=== PATIENT | female | born 2000 | race Hispanic/Latino ===

== ENCOUNTER 2024-07-14 12:54 | Emergency (ER) | payer BC, SELFPAY ==
[2024-07-14 13:05] VITALS: BP 148/97; PULSE 77; RESP 20; TEMP 36.6; O2SAT 100
--- NOTE | 2024-07-14 13:12 | ED_ITS ---
HPI - Ear Problem General Chief complaint: Ear Stated complaint: rt ear pain Time Seen by Provider: 07/14/24 13:12 Source: patient, RN notes reviewed and old records reviewed Mode of arrival: ambulatory Limitations: no limitations History of Present Illness HPI Narrative: Patient presents with complaints of cough and chills that began a couple of days ago, now with right ear pain. She has been taking [id number] medications with moderate relief. Afebrile on arrival. She is not in any obvious distress. Related Data Home Medications ?Medication ?Instructions ?Recorded ?Confirmed ?Last Taken ?Type albuterol sulfate 90 mcg/actuation inhalation 07/14/24 Unknown History aerosol inhaler levothyroxine 75 mcg tablet mcg 07/14/24 Unknown History methylphenidate HCl 10 mg tablet mg 07/14/24 Unknown History montelukast 10 mg tablet mg 07/14/24 Unknown History Allergies Allergy/AdvReac Type Severity Reaction Status Date / Time Penicillins Allergy Mild ANAPHALATIC Verified 07/14/24 12:58 REACTION strawberry Allergy Mild Other Verified 07/14/24 12:58 kiwi Allergy Unknown Other Verified 07/14/24 12:58 Sulfa (Sulfonamide Allergy Unknown RASH Verified 07/14/24 12:58 Antibiotics) Review of Systems Review of Systems: All systems reviewed & are unremarkable except as noted in HPI and below Constitutional: Constitutional: Reports no additional constitutional complaints, Reports chills and Reports lethargy ENT: Reports system reviewed and no additional complaints, except as documented and Reports otalgia Cardiovascular: Cardiovascular: Reports no additional cardiovascular complaints Respiratory: Respiratory: Reports no additional respiratory complaints and Reports cough Gastrointestinal: Gastrointestinal: Reports no additional gastrointestinal co mplaints PMFSH Comments At the time of my signature, I reviewed and agree with the nursing past medical, surgical, social, and family history. There is no relevant family history pertinent to the patient complaint. Exam Const: General: cooperative, no acute distress, alert and awake Orientation/consciousness: oriented to person, oriented to place and oriented to time HENMT: Head: normal to inspection Ears: TM's normal bilaterally Mouth: Yes moist mucous membranes Throat: posterior oropharynx normal Resp: Effort & Inspection: normal respiratory effort and able to speak in complete sentences Auscultation: clear to auscultation bilaterally, no crackles, no rales, no rhonchi and no wheezes Cardio: Palpation: normal PMI Rate: regular rate Rhythm: regular rhythm Heart sounds: S1 normal heart sound present and S2 normal heart sound present Neuro: General: oriented to person, oriented to place and oriented to time Cranial nerves: Yes CN's II-XII intact bilaterally Psych: Appearance: grossly normal Thought process: Normal thought process present Insight: Good insight present (Psych) Judgement: Good judgement present (Psych) Course Course Level of Care: Express Care Visit Vital Signs Vital signs: Vital Signs Temperature 97.8 F 07/14/24 13:05 Pulse Rate 77 07/14/24 13:05 Respiratory Rate 20 07/14/24 13:05 Blood Pressure 148/97 H 07/14/24 13:05 Pulse Oximetry 100 07/14/24 13:05 Oxygen Delivery Room Air 07/14/24 13:05 Temperature 97.8 F 07/14/24 13:05 Pulse Rate 77 07/14/24 13:05 Respiratory Rate 20 07/14/24 13:05 Blood Pressure 148/97 H 07/14/24 13:05 Pulse Oximetry 100 07/14/24 13:05 Oxygen Delivery Room Air 07/14/24 13:05 Reviewed Medical Decision Making MDM Narrative Medical decision making narrative: Negative strep, culture pending. Reassuring physical exam. Supportive care measures discussed, symptoms likely viral in origin Discharge instructions reviewed with patient, as well as provided in writing per nursing staff. The instructions also include specific and strict return/GO TO THE ER as well as f/u information. All questions have been answered, and the patient deny any further questions with discharge and discharge plan. Some parts of this dictation were generated by voice recognition software and may contain typographical and/or grammatical inaccuracies. Medical Records Medical records reviewed: Yes I reviewed the external patient's medical records. Vital Signs Vital Signs: Vital Signs Temperature 97.8 F 07/14/24 13:05 Pulse Rate 77 07/14/24 13:05 Respiratory Rate 20 07/14/24 13:05 Blood Pressure 148/97 H 07/14/24 13:05 Pulse Oximetry 100 07/14/24 13:05 Oxygen Delivery Room Air 07/14/24 13:05 Temperature 97.8 F 07/14/24 13:05 Pulse Rate 77 07/14/24 13:05 Respiratory Rate 20 07/14/24 13:05 Blood Pressure 148/97 H 07/14/24 13:05 Pulse Oximetry 100 07/14/24 13:05 Oxygen Delivery Room Air 07/14/24 13:05 reviewed Lab Data Lab results reviewed: Yes I reviewed the patient's lab results. Lab results narrative: reviewed Labs: Lab Results 07/14/24 Range/Units 13:25 POC Grp A Strep Screen Negative (Negative) Discharge Plan Discharge Clinical Impression: Viral infection Patient Disposition: Home, Self-Care Condition: Stable Instructions: Antibiotic Form, Viral Syndrome (ED) Additional Instructions: Continue [id number] medications to treat symptoms. Follow package instructions. Follow-up with primary care provider. Emergency department for new or worse symptoms Patient Language: Taiwanese Prescriptions: No Action methylphenidate HCl 10 mg tablet levothyroxine 75 mcg tablet montelukast 10 mg tablet albuterol sulfate 90 mcg/actuation HFA aerosol inhaler INHALATION Follow-up/Referrals: Elizabeth,LENORA Herndon [Primary Care Provider] - 2 Weeks Stand Alone Forms: Work/School Release IP Time of Disposition: 13:54
[2024-07-14 13:38] LABS: EDSTREPNEGPOS1 Negative (Negative)
== END 2024-07-14 14:00 | disposition home or self-care (01) ==
PROVIDERS: Emergency Provider Nurse Practitioner Family; PCP Registered Nurse
DX: B34.9 Viral infection, unspecified (principal); E03.9 Hypothyroidism, unspecified
CPT/HCPCS: 87081; 87880; 99203; G0463

== ENCOUNTER 2025-01-01 18:05 | Emergency (ER) | payer BC, SELFPAY ==
--- NOTE | ~2025-01-01 | XR_ITS ---
XR lumbar spine 2-3V 01/01/2025 18:49 Indication: Low back pain. Twisting injury. Procedure: 3 views lumbar spine Comparison: No prior studies for comparison. Findings: Mild loss of vertebral body height at L5. There is loss of disc height at L4-5. Normal lumbar lordosis. No evidence for spondylolisthesis. Impression: 1: Mild loss of vertebral body height at L5 without definite fracture. If there is concern for acute fracture, recommend further evaluation with CT or MRI. 2: Mild degenerative disc disease at L4-5. Reviewed, dictated and finalized at location O. Impression: 1: Mild loss of vertebral body height at L5 without definite fracture. If there is concern for acute fracture, recommend further evaluation with CT or MRI. 2: Mild degenerative disc disease at L4-5.
[2025-01-01 18:12] VITALS: BP 140/78; PULSE 98; RESP 16; TEMP 36.7; O2SAT 99
--- OUTSIDE RECORDS SUMMARY | 2025-01-01 18:28 | XMS_ITS | Clinical Summary ---
Author Organization [facility] Address [address] [place] [id number] Care Team Providers Care Radio Electronics Technician Name Role Phone Unavailable Primary Care Provider Unavailabl e Social History Tobacco Use Types Packs/Day Years Used Date Smoking Tobacco: Never Assessed Comments Unknown Sex and Gender Information Value Date Recorded Sex Assigned at Not on file Legal Sex Female 6:18 PM CDT Gender Identity Not on file Sexual Orientation Not on file Plan of Treatment Health Maintenance Due Date Last Done Comments Cervical Cancer Screening Pa p Smear (Age 21 to 29) Every 3 Years 2001 Cervical Cancer Screening 2001 Annual Physical 2004 HPV Vaccines (1 - 3-dose series) 2016 Meningococcal B Vaccine (1 o f 2 - Standard) 2017 Hepatitis C 2019 DTaP, Tdap and Td Vaccines ( 1 - Tdap) 2020 Hepatitis B Vaccines (1 of 3 - 19+ 3-dose series) 2020 COVID-19 Vaccine (1 - 2023-2 5 season) 2024 Meningococcal Vaccine Aged Out No cesar aureliano eligible based on patient's age to complete this topic Pneumococcal Vaccine: Pediat rics (0 to 5 Years) and At-Risk Patients (6 to 49 Years) Aged Out No longer eligible b ased on patient's age to complete this topic RSV Immunizations Under 20 Months Aged Out No longer eligible based on patient's age to complete this topic
[2025-01-01] MEDS: ORPHENADRINE CITRATE 100 MG TABLET.ER PO (18:29)
[2025-01-01] MEDS: KETOROLAC (*BKC) 60 MG/2 ML VIAL IM (18:30)
--- NOTE | 2025-01-01 18:34 | ED_ITS ---
HPI - Back Pain/Injury General Chief Complaint: Back Pain/Injury Stated Complaint: BACK PAIN Time Seen by Provider: 01/01/25 18:12 History of Present Illness HPI Narrative: 24-year-old female presents with left lower back pain since waking up this morning. Patient states she works at [employer] and lifted something heavy last night. Patient states she did not start having pain to this morning. Patient has taken Tylenol. Patient denies history of back problems. Patient denies any trauma. Onset (ago): hour(s) (10) Associated symptoms: denies other symptoms Treatments prior to arrival: acetaminophen Work related injury: Yes Related Data Home Medications ?Medication ?Instructions ?Recorded ?Confirmed ?Last Taken ?Type albuterol sulfate 90 mcg/actuation inhalation 07/14/24 Unknown History aerosol inhaler levothyroxine 75 mcg tablet mcg 07/14/24 Unknown Hist ory methylphenidate HCl 10 mg tablet mg 07/14/24 Unknown History montelukast 10 mg tablet mg 07/14/24 Unknown History Allergies Allergy/AdvReac Type Severity Reaction Status Date / Time Penicillins Allergy Mild ANAPHALATIC Verified 01/01/25 18:14 REACTION strawberry Allergy Mild Other Verified 01/01/25 18:14 kiwi Allergy Unknown Other Verified 01/01/25 18:14 Sulfa (Sulfonamide Allergy Unknown RASH Verified 01/01/25 18:14 Antibiotics) Review of Systems Review of Systems: A 10 system review of systems was completed on the patient and is negative except for what is stated in the HPI. Nursing and ancillary documentation was reviewed. Exam Narrative: GENERAL: Well-appearing, well-nourished, and in no acute distress. HEAD: Normocephalic, atraumatic. EYES: PERRLA and EOMI. ENT: Nares clear, no rhinorrhea or epistaxis. Mucous membranes moist. NECK: Supple. CHEST: Clear to auscultation. No respiratory distress. HEART: Regular rate and rhythm. No murmur heard. Normal peripheral pulses. ABDOMEN: Soft, nontender, nondistended, normal active bowel sounds. EXTREMITIES: Normal range of motion. No edema. SKIN: Warm, dry, no rash. NEURO: No focal deficits. Alert and oriented x3. PSYCH: Normal mood and affect. BACK: Tenderness to left lateral lumbar. no lumbar spine tenderness Course Course Emergency Course: Will give toradol and muscle relaxers. patient requesting x-ray. patient has no spine tenderness but patient is requesting x-ray. I notified the patient of the harm of imaging. patient still requesting x-ray. Reevaluation(s) Reevaluation #1: Patient states pain is better after treatment Date: 01/01/25 Time: 19:18 Vital Signs Vital signs: Vital Signs Temperature 36.7 C 01/01/25 18:12 Pulse Rate 98 01/01/25 18:12 Respiratory Rate 16 01/01/25 18:12 Blood Pressure 140/78 01/01/25 18:12 Pulse Oximetry 99 01/01/25 18:12 Oxygen Delivery Room Air 01/01/25 18:12 Temperature 36.7 C 01/01/25 18:12 Pulse Rate 98 01/01/25 18:12 Respiratory Rate 16 01/01/25 18:12 Blood Pressure 140/78 01/01/25 18:12 Pulse Oximetry 99 01/01/25 18:12 Oxygen Delivery Room Air 01/01/25 18:12 MDM - Back Pain/Injury MDM Narrative Medical decision making narrative: The patient is nontender on spine so low likelihood of acute fracture. Will treat as lumbar strain. Differential Diagnosis Differential diagnosis: Likely other (Muscle vs fracture) Imaging Data Radiologist's impression: Impression: 1: Mild loss of vertebral body height at L5 without definite fracture. If there is concern for acute fracture, recommend further evaluation with CT or MRI. 2: Mild degenerative disc disease at L4-5. Discharge Plan Discharge Clinical Impression: Strain of lumbar region Patient Disposition: Home Condition: Improved Instructions: Antibiotic Form, Low Back Strain (ED) Additional Instructions: Take medications as prescribed Take anti-inflammatory otc as directed Alternate ice and heat to the affected area Return for worsening symptoms Patient Language: [place] Prescriptions: New methocarbamol 750 mg tablet 750 mg PO TID PRN (Reason: muscle spasm) Qty: 14 0RF No Action methylphenidate HCl 10 mg tablet levothyroxine 75 mcg tablet montelukast 10 mg tablet albuterol sulfate 90 mcg/actuation HFA aerosol inhaler INHALATION Follow-up/Referrals: Elizabeth,LENORA Herndon [Primary Care Provider] Stand Alone Forms: Work/School Release IP Time of Disposition: 19:21
== END 2025-01-01 19:31 | disposition home or self-care (01) ==
PROVIDERS: Emergency Provider Nurse Practitioner Family; PCP Registered Nurse
DX: S39.012A Strain of muscle, fascia and tendon of lower back, initial encounter (principal); X50.0XXA Overexertion from strenuous movement or load, initial encounter; M51.369 Other intervertebral disc degeneration, lumbar region without mention of lumbar back pain or lower extremity pain
CPT/HCPCS: 72100; 96372; 99283; A9270; J1885